=== PATIENT | female | born 1985 | race African-American/Black ===

== ENCOUNTER 2017-09-25 15:56 | Emergency (ER) | payer OTHER ==
[2017-09-25 16:01] VITALS: BP 136/83; PULSE 98; RESP 16; TEMP 99.2
--- NOTE | 2017-09-25 16:58 | ED ---
General Adult HPI - General Chief complaint: ENT Stated complaint: Sore throat Time Seen by Provider: 09/25/17 16:00 Source: patient, RN notes reviewed Mode of arrival: ambulatory Limitations: no limitations - History of Present Illness Initial comments: 31 -year-old female presents to the emergency department for a chief complaint of sore throat 2 days. Patient states her son had strep last week. Patient states it is painful to swallow but she can swallow solids and liquids. Patient denies difficulty breathing. Patient denies fevers or chills at home. Patient denies cough or any other cold symptoms. Patient has no other complaints at this time including shortness of breath, chest pain, abdominal pain, nausea or vomiting, headache, or visual changes. - Related Data Home Medications Medication Instructions Recorded Confirmed Losartan [Cozaar] 1 tab PO DAILY 09/25/17 09/25/17 Previous Rx's Medication Instructions Recorded Amoxicillin 500 mg PO Q8H 10 Days capsule 09/25/17 Allergies Allergy/AdvReac Type Severity Reaction Status Date / Time No Known Allergies Allergy Verified 09/25/17 16:01 Review of Systems ROS Statement: Those systems with pertinent positive or pertinent negative responses have been documented in the HPI. ROS Other: All systems not noted in ROS Statement are negative. Past Medical History Past Medical History: Hypertension Additional Past Medical History / Comment(s): pre-diabetic History of Any Multi-Drug Resistant Organisms: None Reported Past Surgical History: Hernia Repair Additional Past Surgical History / Comment(s): ectopic preg Past Psychological History: No Psychological Hx Reported Smoking Status: Never smoker Past Alcohol Use History: Occasional Past Drug Use History: None Reported General Exam Limitations: no limitations General appearance: alert, in no apparent distress Head exam: Present: atraumatic, normocephalic, normal inspection Eye exam: Present: normal appearance, PERRL, EOMI. Absent: scleral icterus, conjunctival injection, nystagmus, periorbital swelling, periorbital tenderness ENT exam: Present: normal exam, mucous membranes moist, TM's normal bilaterally , normal external ear exam. Absent: normal oropharynx (Bilateral tonsillar exudates noted. Uvula midline. No peritonsillar abscesses noted. Oropharynx patent.) Neck exam: Present: normal inspection, full ROM, lymphadenopathy (Mild tender anterior cervical lymphadenopathy). Absent: tenderness, meningismus Respiratory exam: Present: normal lung sounds bilaterally. Absent: respiratory distress, wheezes, rales, rhonchi, stridor Cardiovascular Exam: Present: regular rate, normal rhythm, normal heart sounds. Absent: systolic murmur, diastolic murmur, rubs, gallop, clicks Course Vital Signs 09/25/17 15:59 Temperature 99.2 F Pulse Rate 98 Respiratory 16 Rate Blood Pressure 136/83 O2 Sat by Pulse 98 Oximetry Medical Decision Making - Medical Decision Making 31-year-old female presents to the emergency department for a chief complaint of sore throat 2 days. Patient states her son was diagnosed with strep and she believes she has strep. Patient states she can swallow solids and liquids but it is painful. Patient has not taken anything for pain. Patient denies fevers or chills at home. Patient denies rash. On exam patient has bilateral tonsillar exudates. Uvula midline, no peritonsillar abscess is noted. Pulses strep and heterophile came back negative. Culture will be sent. As patient has anterior cervical lymphadenopathy, tonsillar exudates, and her son had strep she will be treated with amoxicillin. She will follow up with primary care in 1-2 days. Patient is aware she needs to return to the emergency Department if she has worsening symptoms, difficulty breathing or swallowing or high fevers. - Lab Data Lab Results 09/25/17 09/25/17 Range/Units 14:30 16:02 Heterophile Antibody Negative (Negative) Group A Strep Rapid Negative (Negative) Disposition Clinical Impression: Pharyngitis Disposition: HOME SELF-CARE Condition: Good Instructions: Pharyngitis (ED) Additional Instructions: Please take amoxicillin as directed. Take tylenol or motrin for pain. Please follow-up with primary care in 1-2 days. Return to the emergency department if you have difficulty swallowing, breathing, high fevers, or any other worsening symptoms. Prescriptions: Amoxicillin 500 mg PO Q8H 10 Days capsule Is patient prescribed a controlled substance at d/c from ED?: No Referrals: Tc Lazo MD [STAFF PHYSICIAN] - 1-2 days Time of Disposition: 17:05
[2017-09-25] MEDS ORDERED: AMOXICILLIN 500 MG CAP PO STA (17:09)
== END 2017-09-25 17:23 | disposition home or self-care (01) ==
LOC: EC 15:56
DX: J02.9 Acute pharyngitis, unspecified (principal); I10 Essential (primary) hypertension; Z79.899 Other long term (current) drug therapy
CPT/HCPCS: 36415; 86308; 87081; 87430; 99283